=== PATIENT | female | born 1985 | race Two or more races ===

== ENCOUNTER 2022-03-08 11:39 | Outpatient (CLI) | payer BC ==
[2022-03-08 12:48] LABS: BASOPHILS % (AUTO) 0.5 % (0.0-2.0); EOSINOPHILS % (AUTO) 0.9 % (0.0-6.0); HEMATOCRIT 40 % (33-45); HEMOGLOBIN 13.1 g/dL (11.5-14.8); LYMPHOCYTES # (AUTO) 1.8 K/uL (0.8-4.8); LYMPHOCYTES % (AUTO) 24.5 % (20.0-44.0); MEAN CORPUSCULAR HGB CONC 33 g/dl (31.0-36.0); MEAN CORPUSCULAR VOLUME 88 fL (82-100); MONOCYTES # (AUTO) 0.5 K/uL (0.1-1.30); MONOCYTES % (AUTO) 6.5 % (2.0-12.0); NEUTROPHILS # (AUTO) 5.1 K/uL (1.8-8.9); NEUTROPHILS % (AUTO) 67.6 % (43.0-81.0); PLATELET COUNT (AUTO) 232 K/uL (150-450); RED BLOOD CELL COUNT(AUTO) 4.48 MIL/uL (4.0-5.2); WHITE BLOOD COUNT (AUTO) 7.5 K/uL (4.3-11.0)
[2022-03-08 12:55] LABS: BILIRUBIN,URINE NEGATIVE (NEGATIVE); COLOR,URINE YELLOW (YELLOW); LEUKOCYTE ESTERASE ,URINE NEGATIVE (NEGATIVE); NITRITE, URINE NEGATIVE (NEGATIVE); PH,URINE 6.5 (5.0-8.0); PROTEIN,URINE NEGATIVE (NEGATIVE); UGLUCOSE NEGATIVE (NEGATIVE); UROBILINOGEN,URINE 0.2 EU/dL (0.2)
[2022-03-08 13:23] LABS: BACTERIA,URINE Rare /HPF (None Seen); CALCIUM CARBONATE CRYSTALS,UR None Seen /HPF (None Seen); CALCIUM OXALATE CRYSTALS,UR None Seen /HPF (None Seen); CALCIUM PHOSPHATE CRYSTALS,UR None Seen /HPF (None Seen); COARSE GRANULAR CASTS,URINE None Seen /LPF (None Seen); CYSTINE CRYSTALS,URINE None Seen /HPF (None Seen); FATTY CASTS,URINE None Seen /LPF (None Seen); FINE GRANULAR CASTS,URINE None Seen /LPF (None Seen); HYALINE CASTS, URINE None Seen /LPF (None Seen); MUCUS,URINE None Seen /LPF (None Seen); OTHER CRYSTALS,URINE None Seen /HPF (None Seen); RBC,URINE 0-2 /HPF (0-2); RED BLOOD CELL CASTS,URINE None Seen /LPF (None Seen); SPERM,URINE None Seen /HPF (None Seen); SQUAMOUS EPITHELIAL CELL,UR Rare /HPF (None Seen); TRICHOMONAS,URINE None Seen /HPF (None Seen); TRIPLE PHOSPHATE CRYSTAL,UR None Seen /HPF (None Seen); TYROSINE CRYSTAL,URINE None seen /HPF (None Seen); URIC ACID CRYSTALS,URINE None Seen /HPF (None Seen); URINE AMORPHOUS PHOSPHATES None Seen /HPF (None Seen); URINE AMORPHOUS URATE None Seen /HPF (None Seen); WAXY CASTS,URINE None Seen /LPF (None Seen); WBC,URINE 0-2 /HPF (0-3); YEAST,URINE None Seen /HPF (None Seen)
[2022-03-08 13:51] LABS: ALBUMIN 3.6 g/dL (3.4-5.0); BILIRUBIN,TOTAL 0.4 mg/dL (0.2-1.0); CREATININE 0.9 mg/dL (0.6-1.3); POTASSIUM 4.4 mmol/L (3.5-5.1); TOTAL PROTEIN, SERUM 7.2 g/dL (6.4-8.2)
[2022-03-08 14:11] LABS: CALCIUM, SERUM 8.7 mg/dL (8.5-10.1)
== END 2022-03-08 23:59 | disposition home or self-care (01) ==
LOC: LAB 11:39
PROVIDERS: ATTEND Family Medicine
DX: R10.30 Lower abdominal pain, unspecified (principal)
CPT/HCPCS: 36415; 80053-TC; 81001; 85025-TC; 87086-TC

== ENCOUNTER 2022-03-21 10:03 | Outpatient (CLI) | payer BC ==
[2022-03-21] MEDS ORDERED: IOHEXOL-350 100 ML VIAL IV ONE (11:40)
[2022-03-21] MEDS ORDERED: CT SWABBABLE VALVE TRANS SET 1 EA INFUS.SET MC ONE (11:40)
[2022-03-21] MEDS ORDERED: IV NS 0.9% 250 ML IV ONE (11:41)
[2022-03-21] MEDS ORDERED: IOHEXOL-300 100 ML VIAL IV ONE (11:41)
== END 2022-03-21 23:59 | disposition home or self-care (01) ==
LOC: CT 10:03
PROVIDERS: ATTEND Family Medicine
DX: D25.9 Leiomyoma of uterus, unspecified (principal); N83.291 Other ovarian cyst, right side; N83.02 Follicular cyst of left ovary
CPT/HCPCS: 74177; 76856; J7050; Q9967

== ENCOUNTER 2022-04-11 11:00 | Outpatient (CLI) | payer BC ==
[2022-04-11 13:48] LABS: BILIRUBIN,URINE NEGATIVE (NEGATIVE); COLOR,URINE YELLOW (YELLOW); LEUKOCYTE ESTERASE ,URINE NEGATIVE (NEGATIVE); NITRITE, URINE NEGATIVE (NEGATIVE); PROTEIN,URINE NEGATIVE (NEGATIVE); UGLUCOSE NEGATIVE (NEGATIVE); UROBILINOGEN,URINE 0.2 EU/dL (0.2)
[2022-04-11 14:34] LABS: BACTERIA,URINE Rare /HPF (None Seen); SQUAMOUS EPITHELIAL CELL,UR 0-2 /HPF (None Seen); WBC,URINE 0-2 /HPF (0-3)
== END 2022-04-11 23:59 | disposition home or self-care (01) ==
LOC: LAB 11:00
PROVIDERS: ATTEND Family Medicine
DX: E27.9 Disorder of adrenal gland, unspecified (principal)
CPT/HCPCS: 36415; 81001; 82384; 82533; 84402; 84403

== ENCOUNTER 2022-08-28 09:53 | Outpatient (CLI) | payer BC | END 2022-08-28 23:59 | disposition home or self-care (01) | LOC: LAB 09:53 | PROVIDERS: ATTEND Obstetrics & Gynecology | DX: Z01.812 Encounter for preprocedural laboratory examination (principal); Z20.822 Contact with and (suspected) exposure to COVID-19 | CPT/HCPCS: U0003; C9803 ==

== ENCOUNTER 2022-08-31 07:51 | Day surgery (SDC) | payer BC ==
[~2022-08-31 07:51] MED LIST: ANESTHESIA TRAY IN PYXIS 1 EA TRAY MC ONE
[2022-08-31] MEDS ORDERED: SILVER NITRATE APPLICATOR 1 EA BOX ONE (08:26)
[2022-08-31] MEDS ORDERED: FERRIC SUBSULFATE 8 GM/VIAL VIAL ONE (08:31)
[2022-08-31] MEDS ORDERED: FENTANYL PF 100MCG/2ML AMPUL ONE (08:44)
[2022-08-31] MEDS ORDERED: MIDAZOLAM HCL 2 MG/2ML VIAL ONE (08:45)
[2022-08-31] MEDS ORDERED: FAMOTIDINE/PF INJ 20 MG/2 ML VIAL IV ONE (08:45)
[2022-08-31] MEDS ORDERED: SUCCINYLCHOLINE CHLORIDE 20 MG/ML VIAL ONE (08:46)
[2022-08-31] MEDS ORDERED: HYDROMORPHONE INJ 2 MG/ML DISP.SYRIN ONE (08:50)
[2022-08-31 08:59] LABS: HEMOGLOBIN 13.1 g/dL (11.5-14.8)
[2022-08-31] MEDS ORDERED: FERRIC SUBSULFATE 500 ML BOTTLE MC ONE (09:00)
== END 2022-08-31 13:45 | disposition home or self-care (01) ==
LOC: DS 07:51
PROVIDERS: ATTEND Obstetrics & Gynecology
DX: N92.0 Excessive and frequent menstruation with regular cycle (principal); E66.01 Morbid (severe) obesity due to excess calories
CPT/HCPCS: 58558; 85027; 84703; 36415; J0690; J2704; J3010; J1170; J3490 ×2; J2765; J0330 ×2; J2405; J7030; J2250; A4338; A6402; A4217

== ENCOUNTER 2022-11-15 12:50 | Outpatient (CLI) | payer BC ==
[2022-11-15 13:46] LABS: BILIRUBIN,URINE NEGATIVE (NEGATIVE); COLOR,URINE YELLOW (YELLOW); LEUKOCYTE ESTERASE ,URINE NEGATIVE (NEGATIVE); NITRITE, URINE NEGATIVE (NEGATIVE); PROTEIN,URINE NEGATIVE (NEGATIVE); UGLUCOSE NEGATIVE (NEGATIVE); UROBILINOGEN,URINE 0.2 EU/dL (0.2)
[2022-11-15 14:09] LABS: BASOPHILS # (AUTO) 0.2 K/uL (0.0-0.2); HEMATOCRIT 42 % (33-45); HEMOGLOBIN 13.5 g/dL (11.5-14.8); LYMPHOCYTES # (AUTO) 1.7 K/uL (0.8-4.8); LYMPHOCYTES % (AUTO) 20.3 % (20.0-44.0); MEAN CORPUSCULAR HGB CONC 33 g/dl (31.0-36.0); MEAN CORPUSCULAR VOLUME 89 fL (82-100); MONOCYTES # (AUTO) 0.4 K/uL (0.1-1.30); MONOCYTES % (AUTO) 4.7 % (2.0-12.0); NEUTROPHILS # (AUTO) 6.2 K/uL (1.8-8.9); PLATELET COUNT (AUTO) 257 K/uL (150-450); RED BLOOD CELL COUNT(AUTO) 4.66 MIL/uL (4.0-5.2); WHITE BLOOD COUNT (AUTO) 8.6 K/uL (4.3-11.0)
[2022-11-15 14:43] LABS: CALCIUM, SERUM 9.2 mg/dL (8.5-10.1); POTASSIUM 3.8 mmol/L (3.5-5.1)
[2022-11-15 16:04] LABS: BACTERIA,URINE None seen /HPF (None Seen); SQUAMOUS EPITHELIAL CELL,UR 0-2 /HPF (None Seen); WBC,URINE 0-2 /HPF (0-3)
== END 2022-11-15 23:59 | disposition home or self-care (01) ==
LOC: LAB 12:50
PROVIDERS: ATTEND Legal Medicine
DX: Z01.818 Encounter for other preprocedural examination (principal)
CPT/HCPCS: 36415; 80048-TC; 81001; 85025-TC; 85610-TC; 85730-TC

== ENCOUNTER 2022-12-27 09:52 | Outpatient (CLI) | payer BC ==
[2022-12-27 11:28] LABS: BASOPHILS % (AUTO) 0.3 % (0.0-2.0); EOSINOPHILS % (AUTO) 0.2 % (0.0-6.0); HEMATOCRIT 42 % (33-45); HEMOGLOBIN 13.9 g/dL (11.5-14.8); LYMPHOCYTES # (AUTO) 1.2 K/uL (0.8-4.8); LYMPHOCYTES % (AUTO) 11.4 % (20.0-44.0); MEAN CORPUSCULAR HGB CONC 33 g/dl (31.0-36.0); MEAN CORPUSCULAR VOLUME 89 fL (82-100); MONOCYTES # (AUTO) 0.6 K/uL (0.1-1.30); MONOCYTES % (AUTO) 6.2 % (2.0-12.0); NEUTROPHILS # (AUTO) 8.5 K/uL (1.8-8.9); NEUTROPHILS % (AUTO) 81.9 % (43.0-81.0); PLATELET COUNT (AUTO) 292 K/uL (150-450); RED BLOOD CELL COUNT(AUTO) 4.68 MIL/uL (4.0-5.2); WHITE BLOOD COUNT (AUTO) 10.4 K/uL (4.3-11.0)
[2022-12-27 11:30] LABS: BILIRUBIN,URINE NEGATIVE (NEGATIVE); COLOR,URINE YELLOW (YELLOW); LEUKOCYTE ESTERASE ,URINE NEGATIVE (NEGATIVE); NITRITE, URINE NEGATIVE (NEGATIVE); PROTEIN,URINE NEGATIVE (NEGATIVE); UGLUCOSE NEGATIVE (NEGATIVE); UROBILINOGEN,URINE 0.2 EU/dL (0.2)
[2022-12-27 11:53] LABS: BACTERIA,URINE Rare /HPF (None Seen); SQUAMOUS EPITHELIAL CELL,UR Moderate /HPF (None Seen)
[2022-12-27 13:24] LABS: CALCIUM, SERUM 9.4 mg/dL (8.5-10.1); POTASSIUM 3.7 mmol/L (3.5-5.1)
[2022-12-27 15:18] LABS: ALBUMIN 4.2 g/dL (3.4-5.0); BILIRUBIN,TOTAL 0.4 mg/dL (0.2-1.0); TOTAL PROTEIN, SERUM 8.5 g/dL (6.4-8.2)
== END 2022-12-27 23:59 | disposition home or self-care (01) ==
LOC: LAB 09:52
PROVIDERS: ATTEND Legal Medicine
DX: Z01.818 Encounter for other preprocedural examination (principal)
CPT/HCPCS: 36415; 71046; 80053-TC; 81001; 85025-TC; 85730-TC

== ENCOUNTER 2023-01-10 08:19 | Outpatient (CLI) | payer BC | END 2023-01-10 23:59 | disposition home or self-care (01) | LOC: LAB 08:19 | PROVIDERS: ATTEND Internal Medicine Nephrology | DX: Z01.812 Encounter for preprocedural laboratory examination (principal); Z20.822 Contact with and (suspected) exposure to COVID-19 | CPT/HCPCS: U0003; C9803 ==

== ENCOUNTER 2023-01-17 06:13 | Day surgery (SDC) | payer BC ==
[2023-01-17] MEDS ORDERED: BUPIVACAINE MPF 0.5% W/EPI INJ 30 ML VIAL ONE (06:32)
[2023-01-17] MEDS ORDERED: LIDOCAINE 1% INJ 50 ML MDV IJ ONE (06:32)
[2023-01-17] MEDS ORDERED: HYDROMORPHONE INJ 2 MG/ML DISP.SYRIN ONE (07:51)
[2023-01-17] MEDS ORDERED: FENTANYL PF 250MCG/5ML AMPUL ONE (07:51)
[2023-01-17] MEDS ORDERED: MIDAZOLAM HCL 2 MG/2ML VIAL ONE (07:52)
[2023-01-17] MEDS ORDERED: FAMOTIDINE/PF INJ 20 MG/2 ML VIAL IV ONE (07:53)
[2023-01-17] MEDS ORDERED: ROCURONIUM BROMIDE 50 MG/5 ML ONE (07:53)
[2023-01-17] MEDS ORDERED: HYDROMORPHONE 1 MG/1 ML DISP.SYRIN ONE (11:04)
[2023-01-17] MEDS ORDERED: ANESTHESIA TRAY IN PYXIS 1 EA TRAY MC ONE (11:48)
[2023-01-17] MEDS ORDERED: FENTANYL PF 100MCG/2ML AMPUL ONE (12:04)
[2023-01-18] MEDS ORDERED: IBUP-1957 PO (18:05)
[2023-01-18] MEDS ORDERED: HYDR-3972 PO (18:05)
[2023-01-18] MEDS ORDERED: AMLO-213 PO (18:05)
[2023-01-18] MEDS ORDERED: ESCI10TA PO (18:05)
[2023-01-18] MEDS ORDERED: ACET-73 PO (18:05)
[2023-01-18] MEDS ORDERED: GABA-532 PO (18:12)
[2023-01-20] MEDS ORDERED: OMEP20TA20 PO (14:39)
[2023-01-20] MEDS ORDERED: PRED20TA PO (14:39)
== END 2023-01-17 13:15 | disposition home or self-care (01) ==
LOC: DS 06:13
PROVIDERS: ATTEND Surgery
DX: R10.2 Pelvic and perineal pain (principal); K45.0 Other specified abdominal hernia with obstruction, without gangrene; K40.90 Unilateral inguinal hernia, without obstruction or gangrene, not specified as recurrent; N83.201 Unspecified ovarian cyst, right side; I10 Essential (primary) hypertension; E66.01 Morbid (severe) obesity due to excess calories
CPT/HCPCS: 49659; 49505; 84703; J0690; J3490 ×6; J2704; J3010 ×2; J1170 ×2; J2765; J2405; C1781; J7030; J2250

== ENCOUNTER 2023-01-18 16:28 | Inpatient (IN) | payer BC ==
[~2023-01-18] VITALS: Ht 172.7 cm; Wt 126.1 kg
--- NOTE | 2023-01-18 16:28 | NUR ---
BIBS FOR WEAKNESS IN RIGHT LOWER LEG S/P HERNIA REPAIR YESTERDAY. PATIENT STATED SHE FEELS 'SOMETHING' IN HER RIGHT UPPER THIGH BETWEEN HER LEG AND GROIN. A/O X 3, ABLE TO MAKE NEEDS KNOWN. UNABLE TO AMBULATE AT THIS TIME.
--- NOTE | 2023-01-18 16:58 | NUR ---
PULSES +2 IN BILATERAL FEET, C/M/S INTACT BILATERALLY
--- NOTE | 2023-01-18 17:13 | NUR ---
PAGED DR. ROMANO
[2023-01-18] MEDS ORDERED: CT SWABBABLE VALVE TRANS SET 1 EA INFUS.SET MC ONE ×2 (17:15→19:25)
[2023-01-18] MEDS ORDERED: IOHEXOL-350 100 ML VIAL IV ONE (17:15)
[2023-01-18] MEDS ORDERED: IV NS 0.9% 250 ML IV ONE ×2 (17:15→19:25)
--- NOTE | 2023-01-18 17:25 | NUR ---
BLOOD SAMPLES OBTAINED
[2023-01-18] MEDS ORDERED: NIFEDIPINE XL 60 MG TAB.ER.24 PO ONE (17:30)
[2023-01-18 17:31] LABS: BASOPHILS # (AUTO) 0.2 K/uL (0.0-0.2); BASOPHILS % (AUTO) 1.2 % (0.0-2.0); EOSINOPHILS % (AUTO) 0.1 % (0.0-6.0); HEMATOCRIT 39 % (33-45); HEMOGLOBIN 12.8 g/dL (11.5-14.8); LYMPHOCYTES # (AUTO) 1.3 K/uL (0.8-4.8); LYMPHOCYTES % (AUTO) 9.2 % (20.0-44.0); MEAN CORPUSCULAR HGB CONC 33 g/dl (31.0-36.0); MEAN CORPUSCULAR VOLUME 89 fL (82-100); MONOCYTES # (AUTO) 0.9 K/uL (0.1-1.30); MONOCYTES % (AUTO) 6.6 % (2.0-12.0); NEUTROPHILS # (AUTO) 11.7 K/uL (1.8-8.9); NEUTROPHILS % (AUTO) 82.9 % (43.0-81.0); PLATELET COUNT (AUTO) 222 K/uL (150-450); RED BLOOD CELL COUNT(AUTO) 4.41 MIL/uL (4.0-5.2); WHITE BLOOD COUNT (AUTO) 14.2 K/uL (4.3-11.0)
[2023-01-18] MEDS ORDERED: NIFEdipine (10MG) 10 MG CAPSULE PO ONE (17:39)
--- NOTE | 2023-01-18 17:45 | NUR ---
COVID SWAB OBTAINED
[2023-01-18 17:46] LABS: CALCIUM, SERUM 8.9 mg/dL (8.5-10.1); CARBON DIOXIDE 24 mmol/L (21-32); CHLORIDE 106 mmol/L (98-107); CREATININE 0.8 mg/dL (0.6-1.3); GLUCOSE 100 mg/dL (74-106); POTASSIUM 3.5 mmol/L (3.5-5.1); SODIUM SERUM 139 mmol/L (136-145); UREA NITROGEN, BLOOD 9 mg/dL (7-18)
[2023-01-18] MEDS ORDERED: IV NS 0.9% 1,000 ML BAG IV ONE (18:00)
[2023-01-18] MEDS ORDERED: HYDR-3972 PO (18:05)
[2023-01-18] MEDS ORDERED: ESCI10TA PO (18:05)
[2023-01-18] MEDS ORDERED: AMLO-213 PO (18:05)
[2023-01-18] MEDS ORDERED: ACET-73 PO (18:05)
[2023-01-18] MEDS ORDERED: IBUP-1957 PO (18:05)
[2023-01-18] MEDS ORDERED: GABA-532 PO (18:12)
--- NOTE | 2023-01-18 18:58 | NUR ---
ROOM 329 , ADMITTING MADE AWARE
[2023-01-18] MEDS ORDERED: IOHEXOL-300 100 ML VIAL IV ONE (19:25)
[2023-01-18] MEDS ORDERED: ONDANSETRON HCL/PF 4 MG/2 ML VIAL IVP ONE (19:30)
[2023-01-18] MEDS ORDERED: MORPHINE SULFATE INJ 2 MG/ML DISP.SYRIN IV ONE (19:30)
[2023-01-18] MEDS ORDERED: MORPHINE SULFATE INJ 4 MG/ML DISP.SYRIN ONE (19:48)
[2023-01-18] MEDS ORDERED: ONDANSETRON HCL/PF 4 MG/2 ML VIAL ONE (19:48)
--- NOTE | 2023-01-18 20:09 | NUR ---
HAND OFF REPORT GIVEN TO ADEBAYO LOFTON...AWAITING RESULTS OF ABDOMINAL CT
[2023-01-18 21:00] VITALS: BP 137/78
--- NOTE | 2023-01-18 21:00 | NUR ---
SENIOR ENGINEERING MANAGERTIME LOCK EXPERT NOTE PT BROUGHT TO UNIT VIA GURNEY FROM ER AT THIS TIME. PT ADMITTED TO TELE FROM ER UNDER NURSE CHARGE RN [facility] FOR ADMITTING DX TIA, CEREBRAL INFARCTION. A/O X4 AND ABLE TO MAKE NEEDS KNOWN. PT STABLE ON ROOM AIR. NO SOB OR S/S OF RESPIRATORY DISTRESS. BREATHING EVEN AND UNLABORED. ON EXTERNAL SEWAGE PLANT SUPERVISOR READING SR 98 BPM. IV ACCESS ARIAN 20G AND L HAND 20G, INTACT AND PATENT. ORIENTED TO UNIT, STAFF, AND ROOM. PT BELONGINGS ACCOUNTED FOR AND BELONGINGS LIST SIGNED. SAFETY PRECAUTIONS IN PLACE BED IN LOWEST LOCKED POSITION, HOB ELEVATED, SIDE RAILS UP X2, AND CALL LIGHT AND TABLE WITHIN REACH. ALL NEEDS MET AT THIS TIME.
[2023-01-18] MEDS ORDERED: GABAPENTIN 100 MG CAPSULE PO SCH (22:00)
[2023-01-18] MEDS ORDERED: HYDROCODONE/APAP 5/325MG TABLET PO PRN (22:00)
[2023-01-18] MEDS ORDERED: ACETAMINOPHEN ES 500 MG TABLET PO PRN (22:00)
--- NOTE | 2023-01-18 22:10 | NUR ---
RN NOTE TOP CAGER RONALD INFORMED THAT PT PASSED NURSING SWALLOW SCREEN. WITH NEW ORDER FOR CLEAR LIQUID DIET. NEW ORDER NOTED AND CARRIED OUT. CHARGE NURSE DAVIN TINEO.
[2023-01-18] MEDS: BLOOD SUGAR DIAGNOSTIC 1 EACH STRIP IN SCH (22:34)
[2023-01-19] VITALS: BP 146/86
--- NOTE | 2023-01-19 00:01 | NUR ---
RN NOTE PT NOTED WITH INCREASED HR OF 116 BPM. INFORMED ETCHER PRINTED CIRCUIT BOARDS KEH WITH NO NEW ORDERS AT THIS TIME. CHARGE NURSE DAVIN TINEO.
--- NOTE | 2023-01-19 01:00 | NUR ---
RN NOTE PT COMPLAINING OF MILD HEADACHE. NEURO ASSESSMENT DONE, NO CHANGES. ADMINISTERED TYLENOL 1000 MG FOR MILD PAIN ORDERED. MADE COMFORTABLE IN BED. ALL NEEDS MET AT THIS TIME.
[2023-01-19] MEDS ORDERED: PIPERACILLIN /TAZOBACTAM 3.375 G in IV D5W 50 ML IV SCH (02:00)
[2023-01-19] MEDS ORDERED: PIPERACILLIN /TAZOBACTAM 3.375 G VIAL IV ONE (02:01)
[2023-01-19 03:56] LABS: BASOPHILS % (AUTO) 0.4 % (0.0-2.0); EOSINOPHILS % (AUTO) 0.2 % (0.0-6.0); HEMATOCRIT 37 % (33-45); HEMOGLOBIN 12.4 g/dL (11.5-14.8); LYMPHOCYTES # (AUTO) 1.4 K/uL (0.8-4.8); LYMPHOCYTES % (AUTO) 11.1 % (20.0-44.0); MEAN CORPUSCULAR HGB CONC 33 g/dl (31.0-36.0); MEAN CORPUSCULAR VOLUME 88 fL (82-100); MONOCYTES # (AUTO) 0.9 K/uL (0.1-1.30); MONOCYTES % (AUTO) 7.1 % (2.0-12.0); NEUTROPHILS # (AUTO) 10.2 K/uL (1.8-8.9); NEUTROPHILS % (AUTO) 81.2 % (43.0-81.0); PLATELET COUNT (AUTO) 214 K/uL (150-450); WHITE BLOOD COUNT (AUTO) 12.5 K/uL (4.3-11.0)
[2023-01-19 04:00] VITALS: BP 120/72
[2023-01-19 04:11] LABS: ALBUMIN 3.2 g/dL (3.4-5.0); BILIRUBIN,TOTAL 0.5 mg/dL (0.2-1.0); CALCIUM, SERUM 8.6 mg/dL (8.5-10.1); CREATININE 0.8 mg/dL (0.6-1.3); POTASSIUM 3.1 mmol/L (3.5-5.1); TOTAL PROTEIN, SERUM 6.9 g/dL (6.4-8.2)
[2023-01-19 04:30] LABS: THYROID STIMULATING HORMONE 1.499 uIU/mL (0.358-3.74)
--- NOTE | 2023-01-19 05:34 | NUR ---
RN NOTE INFORMED 7TH GRADE SOCIAL STUDIES TEACHER KEH OF POTASSIUM LEVEL 3.1 WITH NEW ORDER FOR K DUR 20 MEQ PO ONCE. NOTED AND CARRIED OUT.
[2023-01-19] MEDS ORDERED: POTASSIUM CHLORIDE 20 MEQ TAB.PRT.SR PO ONE (06:00)
[2023-01-19] MEDS: BLOOD SUGAR DIAGNOSTIC 1 EACH STRIP IN SCH ×4 (06:36→21:50)
--- NOTE | 2023-01-19 06:37 | NUR ---
BUNDLE CLERK CLOSING NOTE PT AWAKE IN BED. A/O X4 AND ABLE TO MAKE NEEDS KNOWN. AT BEDSIDE. PT STABLE ON ROOM AIR. NO SOB OR S/S OF RESPIRATORY DISTRESS. BREATHING EVEN AND UNLABORED. ON EXTERNAL HIGH LIFT OPERATOR READING SR 98 BPM. IV ACCESS ARIAN 20G AND L HAND 20G, INTACT AND PATENT. NO COMPLAINTS OF PAIN OR DISCOMFORT AT THIS TIME. ALL DUE MEDS GIVEN ORDERED. KEPT CLEAN AND DRY. SAFETY PRECAUTIONS IN PLACE AT ALL TIMES. BED IN LOWEST LOCKED POSITION, HOB ELEVATED, SIDE RAILS UP X2, AND CALL LIGHT AND TABLE WITHIN REACH. ALL NEEDS MET AT THIS TIME AND WILL ENDORSE TO ONCOMING NURSE FOR DEBI.
[2023-01-19 07:00] VITALS: BP 141/74
--- NOTE | 2023-01-19 07:30 | NUR ---
LAST TRIMMER OPENING NOTE RECEIVED PT RESTING IN BED. A/O X4 AND ABLE TO MAKE NEEDS KNOWN. PT STABLE ON ROOM AIR. NO SOB OR S/S OF RESPIRATORY DISTRESS. BREATHING EVEN AND UNLABORED. ON EXTERNAL STREET ENGINEER READING SR 96 BPM. IV ACCESS ARIAN 20G AND L HAND 20G, INTACT AND PATENT. NO COMPLAINTS OF PAIN OR DISCOMFORT AT THIS TIME. WILL ADMISTER SCHEDULED MEDS PRESCRIBED. KEPT CLEAN AND DRY. SAFETY PRECAUTIONS IN PLACE AT ALL TIMES. BED IN LOWEST LOCKED POSITION, HOB ELEVATED, SIDE RAILS UP X2, AND CALL LIGHT AND TABLE WITHIN REACH. WILL CONTINUE TO MONITOR AND PERFORM NEURO ASSESMENTS
[2023-01-19] MEDS ORDERED: ASPIRIN 81 MG TAB.CHEW PO SCH (09:00)
[2023-01-19] MEDS: ESCITALOPRAM OXALATE (10 MG) 10 MG TABLET PO SCH ×2 (09:00→09:08)
[2023-01-19] MEDS: ASPIRIN 81 MG TAB.CHEW PO SCH (09:09)
[2023-01-19] MEDS: PIPERACILLIN /TAZOBACTAM 3.375 G in IV D5W 50 ML IV SCH ×3 (10:12→20:39)
[2023-01-19] MEDS ORDERED: DEXAMETHASONE SOD PHOSPHATE 10 MG/ML VIAL IM ONE (16:30)
[2023-01-19] MEDS: PREGABALIN 25 MG CAPSULE PO SCH (17:19)
--- NOTE | 2023-01-19 18:27 | NUR ---
MEDICAL STAFF PHYSICIAN CLOSING NOTE PT RESTING IN BED. A/O X4 AND ABLE TO MAKE NEEDS KNOWN. PT STABLE ON ROOM AIR. NO SOB OR S/S OF RESPIRATORY DISTRESS. BREATHING EVEN AND UNLABORED. ON EXTERNAL PER DIEM REGISTERED NURSE READING SINUS TACH 127 BPM. IV ACCESS ARIAN 20G AND L HAND 20G, INTACT AND PATENT. NO COMPLAINTS OF PAIN OR DISCOMFORT AT THIS TIME. ALL DUE MEDS ADMINSITERED PRESCRIBED. KEPT CLEAN AND DRY. SAFETY PRECAUTIONS IN PLACE AT ALL TIMES. BED IN LOWEST LOCKED POSITION, HOB ELEVATED, SIDE RAILS UP X2, AND CALL LIGHT AND TABLE WITHIN REACH. WILL ENDORSE TO NEXT SHIFT.
--- NOTE | 2023-01-19 19:40 | NUR ---
CORK INSULATOR OPENING NOTE PATIENT AWAKE IN ROOM, ALERT/ORIENTED X 4, PT ABLE TO MAKE NEEDS KNOWN. PATIENT STABLE ON RA, NO S/S OF DISTRESS OR SOB NOTED, BREATHING EVEN AND UNLABORED. PATIENT ON EXTERNAL LUBRICATOR GRANULATOR READING SINUS TACHY, HR: 112. IV ACCESS ON ARIAN #20G AND LEFT HAND #20G BOTH INTACT AND SALINE LOCKED. NO C/O PAIN OR DISCOMFORT AT THIS TIME. SAFETY MEASURES IN PLACE: CALL LIGHT WITHIN REACH, SIDE RAILS UP X 2, BED LOCKED IN LOWEST POSITION, HOB ELEVATED, BED ALARM ON. WILL CONTINUE TO MONITOR PATIENT
[2023-01-19 20:00] VITALS: BP 162/80
[2023-01-19] MEDS ORDERED: ATORVASTATIN 40 MG TABLET PO SCH (22:00)
--- NOTE | 2023-01-19 22:10 | NUR ---
REGIONAL CLINICAL DIRECTOR NOTE PATIENT'S BLOOD SUGAR = 192, ORDER STATES TO NOTIFY MD IF BS > 150. HOWEVER PATIENT STATED SHE JUST ATE AND HAD SEVERAL JUICES ABOUT 30 MINS AGO. NOTIFIED WAITER/WAITRESS FORMAL CARLOS CARDENAS, NO NEW ORDERS. WILL CONTINUE TO MONITOR
[2023-01-20] VITALS: BP 130/74
[2023-01-20] MEDS: PIPERACILLIN /TAZOBACTAM 3.375 G in IV D5W 50 ML IV SCH ×3 (02:30→13:28)
[2023-01-20 04:00] VITALS: BP 133/80
[2023-01-20] MEDS: BLOOD SUGAR DIAGNOSTIC 1 EACH STRIP IN SCH ×2 (06:50→12:08)
--- NOTE | 2023-01-20 07:08 | NUR ---
DOMESTIC HOUSEKEEPER CLOSING NOTE PATIENT AWAKE IN ROOM, ALERT/ORIENTED X 4, PT ABLE TO MAKE NEEDS KNOWN. PATIENT STABLE ON RA, NO S/S OF DISTRESS OR SOB NOTED, BREATHING EVEN AND UNLABORED. PATIENT ON EXTERNAL RN GYN READING SINUS RHYTHM, HR: 93, PT WAS TACHY AT TIMES THIS SHIFT WHEN AMBULATING TO BATHROOM. IV ACCESS ON ARIAN #20G AND LEFT HAND #20G BOTH INTACT AND SALINE LOCKED. NO C/O PAIN OR DISCOMFORT THIS SHIFT. MEDICATIONS GIVEN ORDERED, PT NEEDS MET THROUGHOUT SHIFT. PATIENT'S BS 208 THIS AM HOWEVER PT STATED SHE DRANK JUICES AND ATE JELLO RECENTLY. PATIENT'S RIGHT LEG FEELING MUCH BETTER AFTER DECAGRON IM SHOT, PT HAS MORE STRENGTH ON LEG. SAFETY MEASURES IN PLACE: CALL LIGHT WITHIN REACH, SIDE RAILS UP X 2, BED LOCKED IN LOWEST POSITION, HOB ELEVATED, BED ALARM ON. WILL ENDORSE TO DAYSHIFT RN FOR CONTINUITY OF CARE
--- NOTE | 2023-01-20 07:57 | NUR ---
RN OPENING NOTE PATIENT AWAKE IN BED RESTING, A/O X 4. NO S/S OF PAIN NOTED AT THIS TIME. ON ROOM AIR, BREATHING EVEN UNLABORED, NO DISTRESS OR SHORTNESS OF BREATH NOTED. IV ACCESS ARIAN #20G INTACT, PATENT AND FLUSHING WELL. PATIENT WITH EXTERNAL CLINICAL REHABILITATION SPECIALIST WITH CURRENT READING OF SR AND HR OF 89, NO CARDIAC DISTRESS NOTED. FALL AND SAFETY MEASURES IN PLACE, BED ALARM ON, BED IN LOW AND LOCK POSITION, CALL LIGHT AND TABLE WITHIN EASY REACH, SIDE RAILS UP X2. WILL CONTINUE TO MONITOR.
[2023-01-20 08:00] VITALS: BP 153/89
[2023-01-20] MEDS: ASPIRIN 81 MG TAB.CHEW PO SCH (08:14)
[2023-01-20] MEDS: GABAPENTIN 100 MG CAPSULE PO SCH ×2 (08:14→12:52)
[2023-01-20] MEDS: PREGABALIN 25 MG CAPSULE PO SCH (08:14)
[2023-01-20] MEDS: ESCITALOPRAM OXALATE (10 MG) 10 MG TABLET PO SCH ×2 (08:15→08:29)
--- NOTE | 2023-01-20 12:04 | NUR ---
RN NOTE PATIENT 1200 GLUCOSE CHECKED WAS DONE, GLUCOSE 166 MG/DL, PATIENT STATED SHE JUST HAD DRANK JUICE. WILL CONTINUE TO MONITOR, CHARGE NURSE AWARE.
[2023-01-20] MEDS ORDERED: PRED20TA PO (14:39)
[2023-01-20] MEDS ORDERED: OMEP20TA20 PO (14:39)
--- NOTE | 2023-01-20 16:15 | NUR ---
OR SCRUB TECH NOTE PATIENT DISCHARGE IN STABLE MEDICAL CONDITION. A/O X4. V/S TAKEN, STABLE AND RECORDED. NO IV ACCESS. NAME ARM BAND REMOVED. EXTERNAL MANUFACTURING SOFTWARE ENGINEER REMOVED AND RETURNED TO TELE DESK. SKIN ASSESSMENT DONE, SKIN INTACT EXCEPT FOR SX. 3 ABDOMINAL INCISION, S/P LAPAROSCOPIC HERNIA REPAIR. PATIENT REFUSED INCISION CLEANING BEFORE DISCHARGE AND STATED SHE WILL DO IT AT HOME AFTER TAKING A SHOWER, INCISION CARE SUPPLY PROVIDED BEFORE D/C. ALL BELONGINGS CHECKED AND BELONGING LIST SIGNED. HEALTH TEACHING AND DISCHARGE INSTRUCTIONS GIVEN AND VERBALIZED UNDERSTANDING. PROVIDED PATIENT WITH CD WITH IMAGES/REPORT BEFORE D/C. INSTRUCTED PATIENT TO FOLLOW UP WITH DOCTORS. DISCUSSED PRESCRIPTIONS WITH PATIENT. INSTRUCTED PATIENT IN CASE OF EMERGENCY TO CALL 911 OR GO TO THE NEAREST ER. PATIENT LEFT UNIT AMBULATING WITH NO SIGNS OF DISTRESS, ACCOMPANIED BY BODYBUILDER TO THE LOBBY. PATIENT WENT HOME WITH HER . CHARGE NURSE AWARE OF DISCHARGED.
[2023-01-20 16:17] LABS: BILIRUBIN,URINE NEGATIVE (NEGATIVE); COLOR,URINE YELLOW (YELLOW); LEUKOCYTE ESTERASE ,URINE NEGATIVE (NEGATIVE); NITRITE, URINE NEGATIVE (NEGATIVE); PROTEIN,URINE NEGATIVE (NEGATIVE); UGLUCOSE NEGATIVE (NEGATIVE); UROBILINOGEN,URINE 0.2 EU/dL (0.2)
[2023-01-20 16:22] LABS: BACTERIA,URINE None seen /HPF (None Seen); RBC,URINE 51-80 /HPF (0-2); WBC,URINE 0-2 /HPF (0-3)
== END 2023-01-20 16:10 | disposition home or self-care (01) | DRG 92 ==
LOC: ER 16:35 → MED 19:41 → TELE 22:01
PROVIDERS: ADMIT Nurse Practitioner Acute Care; ATTEND Nurse Practitioner Acute Care
DX: G97.82 Other postprocedural complications and disorders of nervous system (principal); Z68.41 Body mass index [BMI] 40.0-44.9, adult; I72.0 Aneurysm of carotid artery; G58.8 Other specified mononeuropathies; T81.82XA Emphysema (subcutaneous) resulting from a procedure, initial encounter; E66.01 Morbid (severe) obesity due to excess calories; D72.829 Elevated white blood cell count, unspecified; N83.202 Unspecified ovarian cyst, left side; I10 Essential (primary) hypertension; E87.6 Hypokalemia; Y84.8 Other medical procedures as the cause of abnormal reaction of the patient, or of later complication, without mention of misadventure at the time of the procedure; Y92.89 Other specified places as the place of occurrence of the external cause; R73.03 Prediabetes; Z20.822 Contact with and (suspected) exposure to COVID-19; Z80.3 Family history of malignant neoplasm of breast; Z82.49 Family history of ischemic heart disease and other diseases of the circulatory system; Z87.11 Personal history of peptic ulcer disease; Z87.891 Personal history of nicotine dependence
CPT/HCPCS: 36415; 70450-TC; 70496-TC; 70498-TC; 71045-TC; 72131-TC; 80048-TC; 80053-TC; 80061-TC; 81001; 82962-TC; 84443-TC; 84484-TC; 84703-TC; 85025-TC; 85730-TC; 93880-TC; 93971-TC; 97112-TC; 97116-TC; 97530-TC; A4223; C9803; G0378; J1100; J2270; J2405; J2543; J7030; J7050; J7060; Q9967

== ENCOUNTER 2023-02-08 13:37 | Outpatient (CLI) | payer BC ==
[~2023-02-08 13:37] MED LIST changes: +ACET-73 PO; +AMLO-213 PO; -ANESTHESIA TRAY IN PYXIS 1 EA TRAY MC ONE; +ESCI10TA PO; +GABA-532 PO; +HYDR-3972 PO; +IBUP-1957 PO; +OMEP20TA20 PO; +PRED20TA PO
[2023-02-08 15:02] LABS: BILIRUBIN,URINE NEGATIVE (NEGATIVE); COLOR,URINE YELLOW (YELLOW); LEUKOCYTE ESTERASE ,URINE NEGATIVE (NEGATIVE); NITRITE, URINE NEGATIVE (NEGATIVE); PROTEIN,URINE NEGATIVE (NEGATIVE); UGLUCOSE NEGATIVE (NEGATIVE); UROBILINOGEN,URINE 0.2 EU/dL (0.2)
[2023-02-08 16:52] LABS: BACTERIA,URINE None seen /HPF (None Seen); MUCUS,URINE Few /LPF (None Seen); WBC,URINE 0-2 /HPF (0-3)
== END 2023-02-08 23:59 | disposition home or self-care (01) ==
LOC: LAB 13:37
PROVIDERS: ATTEND Legal Medicine
DX: Z11.3 Encounter for screening for infections with a predominantly sexual mode of transmission (principal)
CPT/HCPCS: 36415; 81001; 86592; 86593; 86803; 87086-TC; 87491; 87591; 87806

== ENCOUNTER 2023-03-01 13:47 | Outpatient (CLI) | payer BC | END 2023-03-01 23:59 | disposition home or self-care (01) | LOC: MRI 13:47 | PROVIDERS: ATTEND Neurological Surgery | DX: M51.27 Other intervertebral disc displacement, lumbosacral region (principal); M48.07 Spinal stenosis, lumbosacral region; M47.816 Spondylosis without myelopathy or radiculopathy, lumbar region | CPT/HCPCS: 72148-TC ==